=== PATIENT | male | born 1945 | race Asian ===

== ENCOUNTER 2017-01-11 12:28 | Emergency (ER) | payer MEDICARE ==
--- NOTE | 2017-01-11 13:07 | ER Document Report ---
ED Medical Screen (RME) - General Chief Complaint: Numbness of Face Stated Complaint: WEAKNESS Time Seen by Provider: 01/11/17 13:05 Notes: Somewhere between 7 and 9 AM this morning, patient developed numbness of the left side of his face. He has never had this before. Still feels it is present. Family member thinks that they noted some drooping of the left side of his face earlier, although not present now. Has not had any pain in the face. Patient also notes that his left leg has felt numb this morning, as well. Now, patient has noted he has ringing in his left ear. Does not have any symptoms in his left arm. He says his head feels "tight", but no actual headache. No chest pain. No nausea or vomiting. Has had a slight cough recently. Has not had any fever. Patient has a history of hypertension. Not diabetic. No history of heart disease. Never had a stroke. Patient is French and language is difficult, but very adequate family translator/interpreter TRAVEL OUTSIDE OF THE [place] IN LAST 30 DAYS: No - Related Data Allergies/Adverse Reactions: No Known Allergies Allergy (Verified 01/11/17 12:32) Past Medical History Renal/ Medical History: Denies: Hx Peritoneal Dialysis Physical Exam - Vital signs Vitals: Temp Pulse Resp BP Pulse Ox 97.4 F 85 14 152/98 H 98 01/11/17 12:32 01/11/17 12:32 01/11/17 12:32 01/11/17 12:32 01/11/17 12:32 Course - Vital Signs Vital signs: Temp Pulse Resp BP Pulse Ox 97.4 F 85 14 152/98 H 98 01/11/17 12:32 01/11/17 12:32 01/11/17 12:32 01/11/17 12:32 01/11/17 12:32
[2017-01-11 13:40] LABS: ABSOLUTE LYMPHOCYTES (AUTO) 1.2 10^3/uL (0.5-4.7); ABSOLUTE MONOCYTES (AUTO) 0.4 10^3/uL (0.1-1.4); BASOPHILS % (AUTO) 0.5 % (0-2); EOSINOPHILS % (AUTO) 0.2 % (0-6); HEMATOCRIT 43.1 % (37.9-51.0); HGB HCT DIFFERENCE -1.1; LYMPHOCYTES % (AUTO) 13.7 % (13-45); MEAN CORPUSCULAR HEMOGLOBIN 31.7 pg (27.0-33.4); MEAN CORPUSCULAR HGB CONC 32.4 g/dL (32.0-36.0); MEAN CORPUSCULAR VOLUME 98 fl (80-97); MONOCYTES % (AUTO) 4.9 % (3-13); RED BLOOD COUNT 4.42 10^6/uL (4.35-5.55); RED CELL DISTRIBUTION WIDTH 12.9 % (11.5-14.0); SEGMENTED NEUTROPHILS % (AUTO) 80.7 % (42-78); WHITE BLOOD COUNT 8.7 10^3/uL (4.0-10.5)
--- NOTE | 2017-01-11 13:44 | RADIOLOGY REPORT (SQ) ---
EXAM DESCRIPTION: CT HEAD WITHOUT COMPLETED DATE/TIME: 01/11/2017 1:34 pm REASON FOR STUDY: Numbness left face, numb left leg COMPARISON: None. TECHNIQUE: Axial images acquired through the brain without intravenous contrast. Images reviewed wi th bone, brain and subdural windows. Images stored on PACS. All CT scanners at this facility use dose modulation, iterative reconstruction, and/or weight based d osing when appropriate to reduce radiation dose to as low as reasonably achievable (ALARA). [facility]: Dose Right [facility]: CareDose [facility]: Dose Right [facility]: Teradose 4D [facility]: Modiv Media RADIATION DOSE: 64.61mGy. LIMITATIONS: None. FINDINGS: VENTRICLES: Prominent. CEREBRUM: No masses. No hemorrhage. No midline shift. Areas of low density in the white matter mos t likely due to chronic micro-vascular ischemic change. No evidence for acute infarction. CEREBELLUM: No masses. No hemorrhage. No alteration of density. No evidence for acute infarction. EXTRAAXIAL SPACES: Age-related involutional change. Arachnoid cyst anterior left temporal lobe. No masses. ORBITS AND GLOBE: No intra- or extraconal masses. Normal contour of globe without masses. CALVARIUM: No fracture. PARANASAL SINUSES: No fluid or mucosal thickening. SOFT TISSUES: No mass or hematoma. OTHER: No other significant finding. IMPRESSION: CHRONIC CHANGES OF ATROPHY AND MICROVASCULAR ISCHEMIA. NO ACUTE PROCESS. TECHNICAL DOCUMENTATION: JOB ID: [id number] Quality ID # [id number]: Final reports with documentation of one or more dose reduction techniques (e.g., Au tomated exposure control, adjustment of the mA and/or kV according to patient size, use of iterative reconstruction technique) 2010 [employer]- All Rights Reserved
--- NOTE | 2017-01-11 13:46 | RADIOLOGY REPORT (SQ) ---
EXAM DESCRIPTION: CHEST PA/LAT COMPLETED DATE/TIME: 01/11/2017 1:36 pm REASON FOR STUDY: Cough COMPARISON: None. EXAM PARAMETERS: NUMBER OF VIEWS: two views TECHNIQUE: Digital Frontal and Lateral radiographic views of the chest acquired. RADIATION DOSE: NA LIMITATIONS: none FINDINGS: LUNGS AND PLEURA: No opacities, masses or pneumothorax. No pleural effusion. MEDIASTINUM AND HILAR STRUCTURES: No masses or contour abnormalities. HEART AND VASCULAR STRUCTURES: Heart normal size. No evidence for failure. BONES: No acute findings. HARDWARE: None in the chest. OTHER: No other significant finding. IMPRESSION: NO SIGNIFICANT RADIOGRAPHIC FINDING IN THE CHEST. TECHNICAL DOCUMENTATION: JOB ID: [id number] [employer]- All Rights Reserved
[2017-01-11 13:59] LABS: ALANINE AMINOTRANSFERASE 50 U/L (21-72); ALBUMIN 4.6 g/dL (3.5-5.0); ALKALINE PHOSPHATASE 73 U/L (38-126); ANION GAP 15 (5-19); ASPARTATE AMINO TRANSFERASE 28 U/L (17-59); BILIRUBIN,DIRECT 0.2 mg/dL (0.0-0.4); BILIRUBIN,TOTAL 0.6 mg/dL (0.2-1.3); BLOOD UREA NITROGEN 17 mg/dL (7-20); CALCIUM 9.9 mg/dL (8.4-10.2); CARBON DIOXIDE 31 mmol/L (22-30); CHLORIDE 100 mmol/L (98-107); CREATININE RESULT 0.88 mg/dL (0.52-1.25); GLUCOSE 153 mg/dL (75-110); POTASSIUM 4.1 mmol/L (3.6-5.0); SODIUM 146.2 mmol/L (137-145); TOTAL PROTEIN 8.1 g/dL (6.3-8.2)
[2017-01-11 14:10] LABS: CREATINE KINASE MB 1.72 ng/mL (<4.55)
[2017-01-11 14:12] LABS: TROPONIN I < 0.012 ng/mL
[2017-01-11 14:48] LABS: APPEARANCE,URINE CLEAR; BILIRUBIN,URINE NEGATIVE (NEGATIVE); GLUCOSE, URINE NEGATIVE (NEGATIVE); KETONES,URINE NEGATIVE (NEGATIVE); LEUKOCYTE ESTERASE,URINE NEGATIVE (NEGATIVE); NITRITE,URINE NEGATIVE (NEGATIVE); PROTEIN,URINE NEGATIVE (NEGATIVE); URINE SPECIFIC GRAVITY 1.009; UROBILINOGEN,URINE NEGATIVE mg/dL (<2.0)
--- NOTE | 2017-01-11 15:03 | ER Document Report ---
ED Neuro Symptoms/Deficit - General Mode of Arrival: Wheelchair Information source: Patient TRAVEL OUTSIDE OF THE [place] IN LAST 30 DAYS: No - HPI Onset: This morning - Refer to HPI note Awoke with symptoms: No Similar symptoms previously: No Recently seen / treated by doctor: No <GARY WILHELM - Last Filed: 01/11/17 19:38> <NELSON COLE - Last Filed: 01/11/17 23:19> - General Chief Complaint: Numbness of Face Stated Complaint: WEAKNESS Time Seen by Provider: 01/11/17 13:05 Notes: Patient is a 71 year old Mandarin speaking male presenting to the emergency department for left sided weakness. Patient's granddaughter states the patient had numbness and weakness in his left side and left face between 7:00 and 9:00 this morning. Patient has never had this symptom before and still feels like it is present. The family believes there may be some facial droop to the left side. Patient also has some ringing in his left ear. Patient's left leg has felt numb as well this morning. Patient also complains of a headache or discomfort in his head. Patient has no chest pain, nausea, vomiting, or fever. Patient has a history of hypertension and medicare insurance. Patient still has some numbness to his left cheek. Patient does not want to stay or be admitted to the hospital and is ready to go home. (GARY WILHELM) - Related Data Allergies/Adverse Reactions: No Known Allergies Allergy (Verified 01/11/17 12:32) Past Medical History - General Information source: Patient - Social History Smoking Status: Unknown if Ever Smoked Patient has suicidal ideation: No Patient has homicidal ideation: No - Past Medical History Cardiac Medical History: Reports: Hx Hypertension Surgical Hx: Negative <GARY WILHELM - Last Filed: 01/11/17 19:38> - Social History Family History: Reviewed & Not Pertinent <NELSON COLE - Last Filed: 01/11/17 23:19> Review of Systems - Review of Systems Constitutional: No symptoms reported EENT: No symptoms reported Cardiovascular: No symptoms reported Respiratory: No symptoms reported Gastrointestinal: No symptoms reported Genitourinary: No symptoms reported Male Genitourinary: No symptoms reported Musculoskeletal: No symptoms reported Skin: No symptoms reported Hematologic/Lymphatic: No symptoms reported Neurological/Psychological: See HPI, Numbness, Tingling -: Yes All other systems reviewed and negative <CHOCOGILAGARY - Last Filed: 01/11/17 19:38> Physical Exam - Vital signs Interpretation: Normal - General General appearance: Appears well, Alert In distress: Mild - HEENT Head: Normocephalic, Atraumatic Eyes: Normal Pupils: PERRL Mucous membranes: Moist - Respiratory Respiratory status: No respiratory distress Chest status: Nontender Breath sounds: Normal Chest palpation: Normal - Cardiovascular Rhythm: Regular Heart sounds: Normal auscultation Murmur: No - Abdominal Inspection: Normal Distension: No distension Bowel sounds: Normal Tenderness: Nontender Organomegaly: No organomegaly - Back Back: Normal, Nontender - Extremities General upper extremity: Normal inspection, Normal ROM, Normal strength General lower extremity: Normal inspection, Normal ROM, Normal strength - Neurological Neuro grossly intact: Yes Cognition: Normal Orientation: AAOx4 [place] Coma Scale Eye Opening: Spontaneous Luis Daniel Coma Scale Verbal: Oriented Luis Daniel Coma Scale Motor: Obeys Commands [place] Coma Scale Total: 15 Speech: Normal Motor strength normal: LUE, RUE, LLE, RLE Additional motor exam normals: Equal lead pony rider. No: Pronator drift, Weakness Sensory: Altered light touch - to the left cheek - Psychological Associated symptoms: Normal affect, Normal mood - Skin Skin Temperature: Warm Skin Moisture: Dry <CHOCOGARY - Last Filed: 01/11/17 19:38> Course - Laboratory Result Diagrams: 01/11/17 13:20 01/11/17 13:20 <CHRISREINAGARY - Last Filed: 01/11/17 19:38> - Laboratory Result Diagrams: 01/11/17 13:20 01/11/17 13:20 <NELSON COLE - Last Filed: 01/11/17 23:19> - Re-evaluation Re-evalutation: 01/11/17 Patient is a 8-year-old male who comes in complaining of paresthesias and left- sided weakness is now resolved. Patient has no acute findings on CT or blood work. We have discussed at length with the patient's symptoms are concerning for CVA or TIA. This is been discussed at length with his family and the patient is been recommended to spend the night in the hospital to further evaluate his symptoms. Patient wants to go home. He does not want to pay a hospital bill. I have informed the patient that he is 71 years old and his Medicare. The visit should be covered. Patient states that he does not want to stay in the hospital and wants to go home. I have explained to him and his daughter that because he is feeling better does not mean that he did not have a stroke or is not at risk for a stroke which could cause him permanent and disability. Patient understands and will sign out AGAINST MEDICAL ADVICE. Return immediately if any concerning symptoms. (NELSON COLE) - Vital Signs Vital signs: Temp Pulse Resp BP Pulse Ox 97.7 F 73 18 159/93 H 99 01/11/17 15:30 01/11/17 15:30 01/11/17 15:30 01/11/17 15:30 01/11/17 15:30 - Laboratory Laboratory results interpreted by me: 01/11/17 01/11/17 01/11/17 13:20 13:20 14:27 MCV 98 H Seg Neutrophils % 80.7 H Sodium 146.2 H Carbon Dioxide 31 H Glucose 153 H Urine Blood SMALL H Discharge <GARY WILHELM - Last Filed: 01/11/17 19:38> <NELSON COLE - Last Filed: 01/11/17 23:19> - Discharge Clinical Impression: TIA (transient ischemic attack) Qualifiers: Transient cerebral ischemia type: unspecified Qualified Code(s): G45.9 - Transient cerebral ischemic attack, unspecified Condition: Stable Disposition: AGAINST MEDICAL ADVICE Instructions: Transient Ischemic Attack ([facility]) Additional Instructions: Please follow-up with your doctor as soon as possible. Please take an aspirin daily until your doctor tells your to stop. Referrals: FINESSE JEROME MD [Primary Care Provider] - Follow up as needed Print Language: Mandalexx Rich Attestation: 01/11/17 23:19 I personally performed the services described in the documentation, reviewed and edited the documentation which was dictated to the scribe in my presence, and it accurately records my words and actions. (NELSON COLE) Scribe Documentation - Scribe Written by Layla:: Layla Sylvester 01/11/17 19:37 acting as scribe for :: Claire <GARY WILHELM - Last Filed: 01/11/17 19:38>
[2017-01-11 16:35] VITALS: BP 159/93
--- NOTE | 2017-01-12 09:44 | EKG REPORT ---
SEVERITY:- ABNORMAL ECG - SINUS RHYTHM CONSIDER POSTERIOR INFARCT : Confirmed by: Javier Gaston 12-Jan-2017 09:43:32
== END 2017-01-11 15:30 | disposition left against medical advice (07) ==
LOC: ER 12:28
DX: G45.9 Transient cerebral ischemic attack, unspecified (principal); R20.0 Anesthesia of skin; R51 Headache
CPT/HCPCS: 36415; 70450; 71020; 80053; 81001; 82553; 84484; 85025; 93005; 93010; 99285